=== PATIENT | female | born 1980 | race Caucasian/White ===

== ENCOUNTER 2018-12-13 06:24 | Emergency (ER) | payer BC ==
[~2018-12-13] VITALS: Ht 147.3 cm; Wt 62.1 kg
--- OUTSIDE RECORDS SUMMARY | 2018-12-13 06:27 | XMS REPORT ---
[facility] Address Unknown Phone Unavailable Care Team Providers Care Bomb Loader Name Role Phone Unavailable Unavailable Payers Payer Name Policy Type Policy Number Effective Date Expiration Date Problems This patient has no known problems. Allergies, Adverse Reactions, Alerts Allergy Name Allergy Type Status Severity Reaction(s) Onset Date Inactive Date Treating Clinician Comments No Known Allergies DA Active U 2018-05-15 00:00:00 No Known Allergies DA Active U 2014-09-08 00:00:00 Medications This patient has no known medications.
== END 2018-12-13 06:55 | disposition home or self-care (01) ==
LOC: FSED 06:24
DX: L60.0 Ingrowing nail (principal); L03.032 Cellulitis of left toe; L03.031 Cellulitis of right toe; R26.2 Difficulty in walking, not elsewhere classified; I10 Essential (primary) hypertension; J45.909 Unspecified asthma, uncomplicated; L30.9 Dermatitis, unspecified
CPT/HCPCS: 99282